=== PATIENT | female | born 1960 | race Caucasian/White ===

== ENCOUNTER 2019-07-09 23:13 | Observation (INO) | payer OTHER ==
[~2019-07-09] VITALS: Ht 154.9 cm; Wt 63.7 kg
[2019-07-09 23:51] LABS: BASOPHILS ABSOLUTE AUTO 0.03 K/mm3 (0.00-0.23); BASOPHILS PERCENT AUTO 0 % (0-2); EOSINOPHILS ABSOLUTE AUTO 0.07 K/mm3 (0.00-0.68); EOSINOPHILS PERCENT AUTO 1 % (0-6); Hematocrit 38.6 % (33.0-51.0); Hemoglobin 12.7 g/dL (11.5-16.0); IMMATURE GRAN ABSOLUTE AUTO 0.04 K/mm3 (0.00-0.10); IMMATURE GRAN PERCENT AUTO 1 % (0-1); LYMPHOCYTES ABSOLUTE AUTO 1.51 K/mm3 (0.84-5.20); LYMPHOCYTES PERCENT AUTO 17 % (21-46); MONOCYTES ABSOLUTE AUTO 0.43 K/mm3 (0.16-1.47); MONOCYTES PERCENT AUTO 5 % (4-13); Mean Corpuscular HGB 31.1 pg (26.0-34.0); Mean Corpuscular HGB Conc 32.9 g/dL (31.5-36.5); Mean Corpuscular Volume 94 fL (80-100); Mean Platelet Volume 10.6 fL (9.1-12.4); NEUTROPHILS ABSOLUTE AUTO 6.74 K/mm3 (1.96-9.15); NEUTROPHILS PERCENT AUTO 76 % (41-73); Platelet Count 215 K/mm3 (150-400); RDW Coefficient Variation 12.5 % (11.7-14.2); RDW Standard Deviation 43.4 fL (35.1-46.3); Red Blood Cell Count 4.09 M/mm3 (3.80-5.20); White Blood Cell Count 8.82 K/mm3 (4.00-11.30)
[2019-07-10 00:11] LABS: Alanine Aminotransfer (ALT/SGP 27 U/L (12-78); Albumin, Blood 3.5 g/dL (3.4-5.0); Albumin/Globulin Ratio 1.2 (0.8-1.8); Alk Phos 70 U/L (50-136); Anion Gap 6 mmol/L (6-16); Aspartate Aminotrans (AST/SGOT 27 U/L (12-37); Bilirubin, Total 0.2 mg/dL (0.1-1.0); Blood Urea Nitrogen 13 mg/dL (8-24); Bun/Creatinine Ratio 15.3 (12.0-20.0); CO2, Blood 25 mmol/L (21-32); Calcium, Blood 8.2 mg/dL (8.5-10.1); Chloride, Blood 109 mmol/L (98-108); Creatinine, Blood 0.85 mg/dL (0.40-1.00); Globulin, Blood 2.8 g/dL (2.2-4.0); Glomerular Filtration Rate >60 (60-); Glucose, Blood 90 mg/dL (70-99); Potassium, Blood 3.8 mmol/L (3.5-5.5); Sodium, Blood 140 mmol/L (136-145); Total Protein, Blood 6.3 g/dL (6.4-8.2); Troponin I 0.138 ng/mL (0.000-0.040)
[2019-07-10] MEDS ORDERED: CITA20 PO (02:38)
--- NOTE | 2019-07-10 05:27 | NUR ---
PATIENT BP 84/57 WITH MAP 66. PATIENT ASYMPTOMATIC. RECEIVED METOPROLOL 25MG AT 0145. NOTIFIED DR. SOTOMAYOR WHO ORDER TO CONTINUE TO MONITOR AT THIS TIME.
--- NOTE | 2019-07-10 05:50 | NUR ---
PATIENT HAS BEEN SLEEPING SINCE ADMIT TO FLOOR. DENIES ANY NEEDS OR PAIN. CALL LIGHT WITH IN REACH.
--- NOTE | 2019-07-10 08:23 | NUR ---
AM NOTE. ASSUMED CARE OF PT APROX 0700. PT IS A&Ox4 AND IND IN THE ROOM. PT WAS ADMITTED FOR SVT THAT RESOLVED WITH ADENOSINE 6MG. PT DENIES ANY CHEST PAIN/PRESSURE, N/V/D OR SOB. L/S CLEAR T/O. PT IS IN NSR IN THE 60'S PER HERBARIUM WORKER. PT'S BP IS CURRENTLY 97/62, PT IS NONSYMPTOMATIC AT THIS TIME. NO EDEMA IS NOTED ON ASSESSMENT. CALL LIGHT IN REACH, BED IS LOCKED AND LOW WILL CONTINUE TO MONITOR.
--- NOTE | 2019-07-10 12:04 | NUR ---
PT UPDATE... CARDIOLOGY CONSULT WAS PLACED. CARDIOLOGY PROVIDER AT THE BEDSIDE, PT IS TO HAVE STRESS TEST TODAY AND SECOND PORTION TOMORROW. PT'S VS STABLE, PT DENIES ANY CHEST PAIN/PRESSURE, N/V/D OR SOB. NO CHANGES ON TELE NOTED. PT IS AGREEABLE TO THIS PLAN OF CARE. WILL CONTINUE TO MONITOR.
--- NOTE | 2019-07-10 18:15 | NUR ---
SHIFT SUMMARY. NO ACUTE CHANGES NOTED THIS SHIFT. PT HAD FIRST PART OF STRESS TEST AND IS TO HAVE SECOND PART TOMORROW, PT IS TO BE NPO AFTER BREAKFAST AND EKG TO BE DONE AT 0500. PT HAS BEEN IND IN THE ROOM. PT'S VS STABLE, PT DENIES ANY CHEST PAIN/PRESSURE, N/V OR SOB. NO EVENTS NOTED ON TELE PT HAS BEEN IN NSR ALL SHIFT. CALL LIGHT IN REACH, BED IS LOCKED AND LOW WILL CONTINUE TO MONITOR UNTIL REPORT IS GIVEN TO ONCOMING RN.
--- NOTE | 2019-07-11 05:12 | NUR ---
Shift Summary Pt with uneventful night. VSS. No acute changes. No apparent signs of distress. Pt remains alert and oriented, breathing easy, even, unlabored. No changes from initial shift assessment. Pt conversing appropriately, able to make needs known, uses call light. at bedside with pt this shift. Pt denies chest pain, pressure, or palpitations. Pt remains in NSR this shift. EKG completed per orders; results in chart. NPO at 0500 for second part of stress test per orders. Pt has not consumed chocolate, caffine, soda this shift. Will continue to monitor and update as needed.
--- NOTE | 2019-07-11 09:22 | NUR ---
AM NOTE. ASSUMED CARE OF PT APROX 0700. PT IS A&Ox4 AND IND IN THE ROOM. PT WAS ADMITTED FOR SVT, PT HAS BEEN IN NSR SINCE ADMIT. PT DENIES CHEST PAIN/PRESSURE OR PALPITATIONS. PT HAD THE FIRST PART OF HER STRESS TEST YESTERDAY AND WILL HAVE THE SECOND PART TODAY. PT HAD BREAKFAST BUT WILL BE NPO UNTIL HER TEST. PT'S VS STABLE, NO EVENTS ON TELE. WILL CONTINUE TO MONITOR.
--- NOTE | 2019-07-11 17:09 | NUR ---
SHIFT SUMMARY. NO ACUTE CHANGES NOTED THIS SHIFT. PT HAD STRESS TEST AND IS WAITING ON THE RESULTS. PT MAY BE ABLE TO D/C HOME TONIGHT IF STRESS TEST IS NEGATIVE. PT'S VS STABLE T/O SHIFT. PT DENIES ANY CHEST PAIN/PRESSURE, N/V OR SOB. NO EVENTS NOTED ON TELE. PT'S AT THE BEDSIDE ALL SHIFT. PT IND IN THE ROOM. CALL LIGHT IN REACH, BED IS LOCKED AND LOW WILL CONTINUE TO MONITOR UNTIL REPORT IS GIVEN TO ONCOMING RN.
[2019-07-11] MEDS ORDERED: ASPI81CH PO (18:42)
[2019-07-11] MEDS ORDERED: ATOR80 PO (18:44)
== END 2019-07-11 19:25 | disposition home or self-care (01) ==
LOC: ER 23:13 → PCU 23:14
PROVIDERS: Physician Assistant; ADMIT Hospitalist
DX: I47.1 Supraventricular tachycardia (principal); R79.89 Other specified abnormal findings of blood chemistry; F41.9 Anxiety disorder, unspecified; I95.9 Hypotension, unspecified; E78.5 Hyperlipidemia, unspecified; F17.210 Nicotine dependence, cigarettes, uncomplicated; R94.31 Abnormal electrocardiogram [ECG] [EKG]; Z79.82 Long term (current) use of aspirin; Z79.899 Other long term (current) drug therapy; Z88.0 Allergy status to penicillin
CPT/HCPCS: 36415; 71046; 78452; 80053; 84443; 84484; 85025; 93005; 93010; 93017; 93306; 96360; 96372; 99285-25; A9500; G0378; J0706; J1650; J2785; J7030; J7040